=== PATIENT | female | born 1980 | race Caucasian/White ===

== ENCOUNTER 2016-12-04 00:26 | Emergency (ER) | payer MEDICARE | END 2016-12-04 04:22 | disposition other institution (70) | LOC: ER 00:26 | DX: J18.9 Pneumonia, unspecified organism (principal); E87.6 Hypokalemia; E87.1 Hypo-osmolality and hyponatremia; R00.0 Tachycardia, unspecified; I95.9 Hypotension, unspecified; F11.20 Opioid dependence, uncomplicated; R64 Cachexia; M41.9 Scoliosis, unspecified; M54.9 Dorsalgia, unspecified; F17.210 Nicotine dependence, cigarettes, uncomplicated; Z79.899 Other long term (current) drug therapy; Z79.1 Long term (current) use of non-steroidal anti-inflammatories (NSAID) | CPT/HCPCS: 96360; 96361; 99284-25 ==

== ENCOUNTER 2016-12-04 00:26 | Inpatient (IN) | payer MEDICARE ==
[~2016-12-04] VITALS: Ht 167.6 cm; Wt 51.0 kg
[2016-12-04 02:11] LABS: BASO % 0.3 % (0.1-1.2); EOS % 0.3 % (0.7-5.8); GRAN # 3.1 10_X3_uL (1.6-6.1); GRAN % 81.7 % (34.0-71.1); HEMATOCRIT 26.1 % (34-45); HEMOGLOBIN 9.3 g/dL (11.2-15.7); LYMPH # 0.4 10_X3_uL (1.2-3.7); LYMPH % 11.1 % (19.3-51.7); MEAN CORPUSCULAR HEMOGLOBIN 28.5 pg (27.0-33.0); MEAN CORPUSCULAR HGB CONC 35.6 g/dL (32.0-36.0); MEAN CORPUSCULAR VOLUME 80.1 fL (79-95); MEAN PLATELET VOLUME 11.9 fl (7.5-11.5); MONO # 0.3 10_X3_uL (0.2-0.9); MONO % 6.6 % (4.7-12.5); RED BLOOD COUNT 3.26 x10_6/uL (3.9-5.2); RED CELL DISTRIBUTION WIDTH 13.4 % (11.7-14.4); WHITE BLOOD COUNT 3.8 x10_3/uL (4.0-10.0)
[2016-12-04 02:22] LABS: PLATELET COUNT 80 x10_3/uL (182-369)
[2016-12-04 02:25] LABS: ALBUMIN 2.3 gm/dL (3.4-5.0); BILIRUBIN,TOTAL 0.71 mg/dL (0.0-1.0); CALCIUM 7.6 mg/dL (8.7-10.7); CREATININE 1.3 mg/dL (0.6-1.3); TOTAL PROTEIN 6.2 gm/dL (6.4-8.2)
[2016-12-04 02:37] LABS: POTASSIUM 2.8 mmol/L (3.5-5.1)
[2016-12-04 08:44] LABS: CKMB 1.9 ng/ml (0.0-5.0)
[2016-12-04 08:54] LABS: TROP-I < 0.30 NG/ML (0.00-0.30)
[2016-12-04 09:16] LABS: CALCIUM 7.4 mg/dL (8.7-10.7); CREATININE 1.4 mg/dL (0.6-1.3)
[2016-12-04 09:21] LABS: POTASSIUM 2.7 mmol/L (3.5-5.1)
[2016-12-04 09:53] LABS: URINE BILIRUBIN NEGATIVE (NEGATIVE); URINE BLOOD 3+ (NEGATIVE); URINE GLUCOSE (UA) NORMAL (NORMAL); URINE KETONE NEGATIVE (NEGATIVE); URINE LEUKOCYTE ESTERASE 1+ (NEGATIVE); URINE NITRATE NEGATIVE (NEGATIVE); URINE PROTEIN 1+ (NEGATIVE); UROBILINOGEN NORMAL mg/dL (<1.0)
[2016-12-04 10:02] LABS: URINE BACTERIA 4+ (NONE SEEN); URINE RBC 0-5 /[HPF] (0-2); URINE SQUAMOUS EPITHELIAL CELL 0-10 /[HPF] (NONE SEEN)
[2016-12-04 10:43] LABS: GRAN # 3.4 10_X3_uL (1.6-6.1); GRAN % 85.1 % (34.0-71.1); HEMATOCRIT 27.6 % (34-45); HEMOGLOBIN 9.8 g/dL (11.2-15.7); LYMPH # 0.3 10_X3_uL (1.2-3.7); LYMPH % 7.3 % (19.3-51.7); MEAN CORPUSCULAR HEMOGLOBIN 28.8 pg (27.0-33.0); MEAN CORPUSCULAR HGB CONC 35.5 g/dL (32.0-36.0); MEAN CORPUSCULAR VOLUME 81.2 fL (79-95); MEAN PLATELET VOLUME 12.5 fl (7.5-11.5); MONO # 0.3 10_X3_uL (0.2-0.9); MONO % 6.6 % (4.7-12.5); PLATELET COUNT 48 x10_3/uL (182-369); RED CELL DISTRIBUTION WIDTH 13.7 % (11.7-14.4)
[2016-12-04 13:26] LABS: CKMB 7.1 ng/ml (0.0-5.0); TROP-I < 0.30 NG/ML (0.00-0.30)
[2016-12-04 14:00] LABS: HEMATOCRIT 22.3 % (34-45); MEAN CORPUSCULAR HGB CONC 35.9 g/dL (32.0-36.0); MEAN CORPUSCULAR VOLUME 79.9 fL (79-95); MEAN PLATELET VOLUME 12.5 fl (7.5-11.5); RED BLOOD COUNT 2.79 x10_6/uL (3.9-5.2); RED CELL DISTRIBUTION WIDTH 13.5 % (11.7-14.4); WHITE BLOOD COUNT 5.2 x10_3/uL (4.0-10.0)
[2016-12-04 14:05] LABS: MEAN CORPUSCULAR HEMOGLOBIN 28.6 pg (27.0-33.0)
[2016-12-04 14:30] LABS: INR 1.3 (0.9-1.1); PROTHROMBIN TIME (PATIENT) 13.9 SECONDS (9.9-11.1)
--- NOTE | 2016-12-04 16:25 | NUR ---
14:00 TRANSFER PROCESS TO [facility] STARTED PER ORDERS OF DR. BAILEY. 14:09. [facility] PHYSICIAN ACCEPTED FOR ICU PLACEMENT AND PT. CONSENT FOR TRANSFER EMS NOTIFIED FOR TRANSPORT
--- NOTE | 2016-12-04 16:31 | NUR ---
14:46 REPORT CALLED TO HERNAN RAWLS RN AT [facility]. 15:06 EMS FROM [facility] ON THE FLOOR TO TRANSFER PT. TO [facility]
--- NOTE | 2016-12-04 16:33 | NUR ---
15:45 NOTED ADDITONAL BLEEDING AND POSSILBE FLUID LEAKAGE FROM THE CENTRAL LINE WHILE FLUIDS INFUSING. IV'S DISCONNECTED FROM CENTRAL AND PLACED TO SALINE LOCK IN THE RIGHT AC. DR. BAILEY MADE AWARE.
[2016-12-07 11:26] LABS: HBS AG SCREEN Non Reactive (NR); HCV Reactive (NR)
== END 2016-12-04 15:45 | disposition short-term general hospital (02) | DRG 871 ==
LOC: ER 00:26 → MS 04:22
PROVIDERS: Emergency Medicine; ADMIT Family Medicine
PROC: 05H533Z Insertion of Infusion Device into Right Subclavian Vein, Percutaneous Approach (ICD-10-PCS; principal; 2016-12-04)
DX: A41.9 Sepsis, unspecified organism (principal); J18.9 Pneumonia, unspecified organism; I76 Septic arterial embolism; N39.0 Urinary tract infection, site not specified; E46 Unspecified protein-calorie malnutrition; N17.9 Acute kidney failure, unspecified; E87.1 Hypo-osmolality and hyponatremia; R64 Cachexia; E86.0 Dehydration; E87.6 Hypokalemia; I95.9 Hypotension, unspecified; R01.1 Cardiac murmur, unspecified; F17.210 Nicotine dependence, cigarettes, uncomplicated; R00.0 Tachycardia, unspecified; F19.10 Other psychoactive substance abuse, uncomplicated
CPT/HCPCS: 36415; 71010; 71020; 80048; 80053; 80074; 80307; 81001; 82550; 82553; 83605; 83735; 84132; 84443; 85025; 85610; 86738; 87040; 87070; 87086; 87186; 87449; 87880; 94664; 99070; J2930; J7050

== ENCOUNTER 2016-12-06 08:40 | Emergency (ER) | payer MEDICARE ==
[2016-12-06 09:21] LABS: BASO % 0.1 % (0.1-1.2); EOS # 0.1 10_X3_uL (0.0-0.4); EOS % 1.3 % (0.7-5.8); GRAN # 5.6 10_X3_uL (1.6-6.1); GRAN % 79.6 % (34.0-71.1); HEMATOCRIT 25.7 % (34-45); HEMOGLOBIN 8.9 g/dL (11.2-15.7); LYMPH % 14.2 % (19.3-51.7); MEAN CORPUSCULAR HEMOGLOBIN 28.2 pg (27.0-33.0); MEAN CORPUSCULAR HGB CONC 34.6 g/dL (32.0-36.0); MEAN CORPUSCULAR VOLUME 81.3 fL (79-95); MONO # 0.3 10_X3_uL (0.2-0.9); MONO % 4.8 % (4.7-12.5); PLATELET COUNT 58 x10_3/uL (182-369); RED BLOOD COUNT 3.16 x10_6/uL (3.9-5.2); RED CELL DISTRIBUTION WIDTH 14.7 % (11.7-14.4); WHITE BLOOD COUNT 7.1 x10_3/uL (4.0-10.0)
[2016-12-06 09:39] LABS: ALBUMIN 2.5 gm/dL (3.4-5.0); ALKALINE PHOSPHATASE 101 U/L (50-136); ALT/SGPT 17 U/L (3.5-33.9); AMYLASE 58 U/L (15.62-74.58); AST/SGOT 23 U/L (7.04-26.96); BILIRUBIN,TOTAL 0.49 mg/dL (0.0-1.0); CALCIUM 7.7 mg/dL (8.7-10.7); CARBON DIOXIDE 15 mmol/L (21-32); CREATINE KINASE 39 U/L (21-215); CREATININE 0.7 mg/dL (0.6-1.3); GLUCOSE,RANDOM 103 mg/dL (70-99); LIPASE 58 U/L (6.75-60.75); POTASSIUM 3.7 mmol/L (3.5-5.1); SODIUM 136 mmol/L (136-145); TOTAL PROTEIN 5.9 gm/dL (6.4-8.2)
[2016-12-06 09:42] LABS: BLOOD UREA NITROGEN 43 mg/dL (7-18)
[2016-12-06 10:35] LABS: URINE BILIRUBIN NEGATIVE (NEGATIVE); URINE BLOOD TRACE (NEGATIVE); URINE GLUCOSE (UA) NORMAL (NORMAL); URINE KETONE NEGATIVE (NEGATIVE); URINE LEUKOCYTE ESTERASE TRACE (NEGATIVE); URINE NITRATE NEGATIVE (NEGATIVE); URINE PROTEIN 1+ (NEGATIVE)
[2016-12-06 10:50] LABS: URINE BACTERIA FEW (NONE SEEN); URINE SQUAMOUS EPITHELIAL CELL 0-10 /[HPF] (NONE SEEN); URINE WBC 0-5 /[HPF] (0-5)
[2016-12-06 10:51] LABS: URINE AMORPHOUS SEDIMENT TRACE; URINE MUCUS TRACE
== END 2016-12-06 13:50 | disposition short-term general hospital (02) ==
LOC: ER 08:40
PROVIDERS: Emergency Medicine
DX: I33.0 Acute and subacute infective endocarditis (principal); I76 Septic arterial embolism; E87.2 Acidosis; E86.0 Dehydration; J18.9 Pneumonia, unspecified organism; B37.9 Candidiasis, unspecified; J93.9 Pneumothorax, unspecified; R00.0 Tachycardia, unspecified; F17.210 Nicotine dependence, cigarettes, uncomplicated
CPT/HCPCS: 32551; 36415; 51702; 71010; 71250; 80053; 81001; 82150; 82550; 82553; 83605; 83690; 85025; 86738; 87040; 87186; 87400; 87449; 93005; 96361; 96365; 96375; 96376; 99070; 99285-25; J3370; J7050